=== PATIENT | female | born 2000 | race Caucasian/White ===

== ENCOUNTER 2024-12-14 16:21 | Emergency (ER) | payer OTHER, SELFPAY ==
--- NOTE | ~2024-12-14 | XR_ITS ---
XR ankle RT min 3V Ordering provider: Idania Carr NP History: . Pain and swelling . Comparison: None. FINDINGS: BONES: No acute fracture or dislocation. JOINT SPACES: Normal. SOFT TISSUES: Normal. IMPRESSION: No acute osseous abnormality of the right ankle. Reviewed, dictated and finalized at location A.
[2024-12-14 16:40] VITALS: BP 124/71; PULSE 92; RESP 16; TEMP 36.8; O2SAT 100
--- NOTE | 2024-12-14 16:53 | ED.LOWEXIN ---
HPI - Extremity Injury (Lower) General Chief Complaint: Extremity Injury, Lower Stated Complaint: R ANKLE INJURY Time Seen by Provider: 12/14/24 16:30 Source: patient Mode of arrival: ambulatory Limitations: no limitations History of Present Illness HPI Narrative: 24-year-old female presents with complaint of right ankle pain. Patient states that she hit right ankle on door frame and twisted. Reports pain when ambulatory and throbbing pain when standing for long periods of time. Taking ibuprofen to treat pain. Range of motion and distal neurovascularly intact. All systems reviewed and negative except as noted above. Related Data Home Medications ?Medication ?Instructions ?Recorded ?Confirmed ?Last Taken ?Type No Home Medications 12/14/24 12/14/24 Unknown History Allergies Allergy/AdvReac Type Severity Reaction Status Date / Time No Known Allergies Allergy Verified 12/14/24 17:03 Review of Systems Review of Systems: CONSTITUTIONAL: Denies fever, chills, or sweats. EYES: Denies visual changes, redness, or discharge. ENT: Denies rhinorrhea, congestion, sore throat, or otalgia. CARDIOVASCULAR: Denies chest pain, palpitations, or edema. RESPIRATORY: Denies cough or dyspnea. GASTROINTESTINAL: Denies abdominal pain, nausea, vomiting, or diarrhea. GENITOURINARY: Denies dysuria or hematuria. SKIN: Denies rash or itching. MUSCULOSKELETAL: Denies back pain or myalgia. Reports right ankle pain. NEUROLOGIC: Denies headache, numbness, or weakness. PSYCHIATRIC: Denies anxiety or depression. All other systems reviewed are negative, except as documented in HPI. PMFSH Comments At time of signature, agree with nursing past medical, surgical, social and family history. There is no relevant family history pertinent to the presenting complaint. Exam Narrative: GENERAL: This is a well-nourished, well-developed patient, in no apparent distress. HEAD: normocephalic, atraumatic. EYES: PERRL. Sclera clear/white. Vision is grossly intact. EARS: External ears normal NOSE: External nose normal NECK: Neck supple, non-tender without lymphadenopathy, masses or thyromegaly. CARDIOVASCULAR: Regular rate and rhythm without murmurs, gallops, or rubs. RESPIRATORY: Clear to auscultation. Breath sounds equal bilaterally. No wheezes, rales, or rhonchi. SKIN: warm, Dry, intact with no suspicious lesions or rash, good texture and turgor. NEURO: awake, alert, and oriented to person, place and time. There were no obvious focal neurologic abnormalities. EXTREMITIES: Tenderness to lateral aspect of right ankle without swelling or bruising. Range of motion and distal neurovascularly intact. Course Course Level of Care: Express Care Visit Vital Signs Vital signs: Vital Signs Temperature 36.8 C 12/14/24 16:40 Pulse Rate 92 12/14/24 16:40 Respiratory Rate 16 12/14/24 16:40 Blood Pressure 124/71 12/14/24 16:40 Pulse Oximetry 100 12/14/24 16:40 Temperature 36.8 C 12/14/24 16:40 Pulse Rate 92 12/14/24 16:40 Respiratory Rate 16 12/14/24 16:40 Blood Pressure 124/71 12/14/24 16:40 Pulse Oximetry 100 12/14/24 16:40 Reviewed MDM - Extremity Injury (Lower) MDM Narrative Medical decision making narrative: X-ray negative for fracture. Recommend [id number] pain medications to treat pain. Shorty. Imaging Data My impression: Agree with radiologist Radiologist's impression: XR ankle RT min 3V Ordering provider: Idania Carr NP History: . Pain and swelling . Comparison: None. FINDINGS: BONES: No acute fracture or dislocation. JOINT SPACES: Normal. SOFT TISSUES: Normal. IMPRESSION: No acute osseous abnormality of the right ankle. Discharge Plan Discharge Clinical Impression: Contusion of ankle, right Qualifiers: Encounter type: initial encounter Qualified Code(s): S90.01XA - Contusion of right ankle, initial encounter Patient Disposition: Home Condition: Stable Instructions: Contusion in Adults (ED) Additional Instructions: The x-ray of your right ankle was normal. Take ibuprofen or Tylenol every 6-8 hours as needed for pain. Apply ice as needed for pain. Elevate when at rest. Follow-up with your doctor if symptoms are not improving. Patient Language: Indonesian Follow-up/Referrals: PHYSICIAN,MALARIOLOGIST [Primary Care Provider] - Stand Alone Forms: Work/School Release IP Time of Disposition: 16:58
== END 2024-12-14 16:59 | disposition home or self-care (01) ==
PROVIDERS: Emergency Provider Nurse Practitioner Family
DX: S90.01XA Contusion of right ankle, initial encounter (principal); W22.09XA Striking against other stationary object, initial encounter
CPT/HCPCS: 73610; 99203; G0463

== ENCOUNTER 2025-06-04 09:21 | Emergency (ER) | payer OTHER, SELFPAY ==
[2025-06-04 09:30] VITALS: BP 117/77; PULSE 83; RESP 16; TEMP 36.7; O2SAT 100
--- NOTE | 2025-06-04 09:33 | ED_ITS ---
HPI - General Adult General Chief complaint: Upper Respiratory Infection Stated complaint: Sinus Infection Symptoms Time Seen by Provider: 06/04/25 09:34 Source: patient Mode of arrival: ambulatory Limitations: no limitations History of Present Illness HPI narrative: 4-year-old female patient presents to [facility] with complaints of cold-like symptoms that started 2 days ago. Patient does work as a nurse and put a unit. Patient states she has not been measuring her fever but states has had some cold chills, body aches, congestion, runny nose denies chest pain or shortness of breath. Denies abdominal pain nausea vomiting or diarrhea. Related Data Home Medications ?Medication ?Instructions ?Recorded ?Confirmed ?Last Taken ?Type No Home Medications 12/14/24 06/04/25 U nknown History Allergies Allergy/AdvReac Type Severity Reaction Status Date / Time No Known Allergies Allergy Verified 06/04/25 09:30 Review of Systems Review of Systems: CONSTITUTIONAL: Denies fever, Positive chills, body aches and sweats. EYES: Denies visual changes, redness, or discharge. ENT: positive rhinorrhea, congestion, sore throat, denies otalgia. CARDIOVASCULAR: Denies chest pain, palpitations, or edema. RESPIRATORY: Denies cough or dyspnea. GASTROINTESTINAL: Denies abdominal pain, nausea, vomiting, or diarrhea. GENITOURINARY: Denies dysuria or hematuria. SKIN: Denies rash or itching. MUSCULOSKELETAL: Denies back pain, joint pain, or myalgia. NEUROLOGIC: positive headache, denies numbness, or weakness. PSYCHIATRIC: Denies anxiety or depression. [facility] Past Medical History Medical History (Updated 06/04/25 @ 10:52 by Namrata Cadena, NONI) No significant past medical history Comments At the time of my signature I agree with nursing past medical history, surgical, social, and family history. There is no relevant family history pertinent to the presenting complaint. Exam Narrative: GENERAL: Well-appearing, well-nourished, and in no acute distress. HEAD: Normocephalic, atraumatic. EYES: PERRLA and EOMI. ENT: Nares with erythema edema noted bilaterally, no rhinorrhea or epistaxis. Mucous membranes moist. posterior pharynx with no erythema, tonsillar enlarge ment, exudates or lesions present. Bilateral TMs are clear no erythema or foreign bodies the canal. NECK: Supple. No lymphadenopathy CHEST: Clear to auscultation. No respiratory distress. HEART: Regular rate and rhythm. No murmur heard. Normal peripheral pulses. ABDOMEN: Soft, nontender, nondistended, normal active bowel sounds. EXTREMITIES: Normal range of motion. No edema. SKIN: Warm, dry, no rash. NEURO: No focal deficits. Alert and oriented x3. Course Course Level of Care: Express Care Visit Vital Signs Vital signs: Vital Signs Temperature 36.7 C 06/04/25 09:30 Pulse Rate 83 06/04/25 09:30 Respiratory Rate 16 06/04/25 09:30 Blood Pressure 117/77 06/04/25 09:30 Pulse Oximetry 100 06/04/25 09:30 Oxygen Delivery Room Air 06/04/25 09:30 Temperature 36.7 C 06/04/25 09:30 Pulse Rate 83 06/04/25 09:30 Respiratory Rate 16 06/04/25 09:30 Blood Pressure 117/77 06/04/25 09:30 Pulse Oximetry 100 06/04/25 09:30 Oxygen Delivery Room Air 06/04/25 09:30 Vital signs reviewed. Medical Decision Making MDM Narrative Medical decision making narrative: Discussed with patient that her point of care testing for influenza, COVID and strep were all negative today we will send the strep throat swab to the lab for culture if the culture comes back positive we will call her antibiotics at that time. Discussed with patient continue to take jyxb-tzu-fholtdi medications for her symptoms and I did provide her a work note in case she needs a couple of days off. Patient verbalized understanding denies any other questions or concerns at this time. Differential Diagnosis Differential Diagnosis: Differential diagnosis: Allergic rhinitis, chronic sinusitis, tonsillitis, acute sinusitis, infectious mononucleosis, seasonal influenza, pertussis, d iphtheria, meningococcal disease, viral syndrome, viral bronchitis, RSV, COVID- 19 Vital Signs Vital Signs: Vital Signs Temperature 36.7 C 06/04/25 09:30 Pulse Rate 83 06/04/25 09:30 Respiratory Rate 16 06/04/25 09:30 Blood Pressure 117/77 06/04/25 09:30 Pulse Oximetry 100 06/04/25 09:30 Oxygen Delivery Room Air 06/04/25 09:30 Temperature 36.7 C 06/04/25 09:30 Pulse Rate 83 11/09/25 09:30 Respiratory Rate 16 06/04/25 09:30 Blood Pressure 117/77 06/04/25 09:30 Pulse Oximetry 100 06/04/25 09:30 Oxygen Delivery Room Air 06/04/25 09:30 Lab Data Labs: Lab Results 06/04/25 Range/Units 10:32 POC Influenza A Ag Negative (Negative) POC Influenza B Ag Negative (Negative) POC SARS CoV-2 Ag Negative (Negative) POC Grp A Strep Screen Negative (Negative) Critical Care Time Critical Care Time Critical Care Time: No Discharge Plan Discharge Clinical Impression: Viral URI Patient Disposition: Home Condition: Stable Instructions: Antibiotic Form, Viral Syndrome (ED) Additional Instructions: Viral illness may last between 7-12days; antibiotic is NOT recommended at this time. Recommend antihistamine such as Benadryl at night time and Claritin/Zyrtec/Tosha during the day Cough syrup may cause drowsiness; avoid driving or take it at night time. may take [id number]-ibe-[id number] vitamins to help increase in boost your immune system such as vitamin-C, 2000 mg in the morning and 2000 mg in the evening, zinc 50 mg daily x1 week and vitamin D3 2000 IU daily until symptoms resolve. Also, recommend symptomatic treatment includes: rest, fluids, and increase humidity of the air at home. Recommend Acetaminophen or nonsteroidal anti-inflammatory agents (NSAIDs) as directed in the bottle to reduce fever and/pain/headache. Avoid smoking/second-hand smoke. Limit visits to areas with large crowds. Please schedule a follow-up visit with your personal physician for further evaluation and treatment within 3-5days. Including recheck and discussion of your blood pressure. If your symptoms persist, change or worsen significantly before you can contact your personal physician then please, without delay, go to the emergency department for further evaluation. Patient Language: Sami Prescriptions: No Action No Home Medications Follow-up/Referrals: PHYSICIAN,INFORMATION TECHNOLOGY INSTRUCTOR [Primary Care Provider, Internal Medicine] Stand Alone Forms: Work/School Release IP Time of Disposition: 10:49
[2025-06-04 10:33] LABS: EDCOVIDSCREEN Negative (Negative); EDINFLUASCREEN Negative (Negative); EDINFLUBSCREEN Negative (Negative); EDSTREPNEGPOS1 Negative (Negative)
== END 2025-06-04 10:52 | disposition home or self-care (01) ==
PROVIDERS: Emergency Provider Nurse Practitioner Family
DX: J06.9 Acute upper respiratory infection, unspecified (principal); Z20.822 Contact with and (suspected) exposure to COVID-19
CPT/HCPCS: 87081; 87426; 87804; 87880; 99213; G0463